=== PATIENT | male | born 1990 | race Caucasian/White ===

== ENCOUNTER 2024-12-27 17:35 | Emergency (ER) | payer SELFPAY ==
[2024-12-27] MEDS: Diphtheria,Pertussis(Acell),Tetanus Vaccine 0.5 ML Syringe IM ONE (17:54)
[2024-12-27] MEDS: Bacitracin Oint 1 GM U/D Packet TOP ONE (17:59)
[2024-12-27 18:52] VITALS: BP 132/76; PULSE 82
== END 2024-12-27 18:25 | disposition home or self-care (01) ==
LOC: LL.ED 17:35
DX: S61.211A Laceration without foreign body of left index finger without damage to nail, initial encounter (principal); Z23 Encounter for immunization; W26.8XXA Contact with other sharp object(s), not elsewhere classified, initial encounter
CPT/HCPCS: 12041; 90471; 90715; 99282-25; J2003